=== PATIENT | female | born 1985 ===

== ENCOUNTER 2017-06-25 17:42 | Emergency (ER) | payer BC ==
[2017-06-25 17:51] VITALS: BP 116/78; RESP 16; O2SAT 100
[2017-06-25] MEDS ORDERED: Sodium Chloride 0.9% 1,000 ML IV STA (20:16)
[2017-06-25 20:42] LABS: BASO % 0.4 % (0.0-2.0); EOS % 0.1 % (0.0-4.0); HEMOGLOBIN 12.5 g/dL (12.0-16.0); LYMPH # 0.6 K/uL (1.0-4.3); LYMPH % 7.5 % (20.0-40.0); MEAN CORPUSCULAR HEMOGLOBIN 29.6 pg (27.0-31.0); MEAN PLATELET VOLUME 9.5 fl (7.2-11.7); MONO # 0.6 K/uL (0.0-0.8); MONO % 7.4 % (0.0-10.0); NEUT # 6.4 K/uL (1.8-7.0); NEUT % 84.6 % (50.0-75.0); PLATELET COUNT 196 K/uL (130-400); RBC 4.24 Mil/uL (3.80-5.20); RED CELL DISTRIBUTION WIDTH 12.9 % (11.5-14.5); WHITE BLOOD COUNT 7.5 K/uL (4.8-10.8)
[2017-06-25 20:49] LABS: ALB/GLOB RATIO 1.3 (1.0-2.1); ALBUMIN 4.4 g/dL (3.5-5.0); ALT/SGPT 60 U/L (9-52); AST/SGOT 37 U/L (14-36); BLOOD UREA NITROGEN 10 mg/dl (7-17); CALCIUM 8.9 mg/dL (8.4-10.2); GFR AFRICAN-AMERICAN > 60; GFR NON-AFRICAN AMERICAN > 60
[2017-06-25 20:59] LABS: SQUAMOUS EPITHIAL 11 /hpf (0-5); URINE BACTERIA MANY (<OCC); URINE BILIRUBIN NEGATIVE (NEGATIVE); URINE BLOOD LARGE (NEGATIVE); URINE CLARITY CLOUDY (Clear); URINE COLOR YELLOW (YELLOW); URINE GLUCOSE (UA) NEG (Normal); URINE LEUKOCYTE ESTERASE LARGE Leu/uL (Negative); URINE NITRATE POSITIVE (NEGATIVE); URINE PROTEIN 30 mg/dL (NEGATIVE)
--- NOTE | 2017-06-25 21:02 | ED PDOC ---
HPI: Headache Time Seen by Provider: 06/25/17 19:00 Chief Complaint (Nursing): Flu-like Symptoms Chief Complaint (Provider): headache History Per: Patient Onset/Duration Of Symptoms: Days (x1) Current Symptoms Are (Timing): Still Present Additional Complaint(s): 32 year old female who presents to the emergency department with a complaint of fever associated with headache ongoing for 1 day. Denied any nausea, vomiting, diarrhea, abdominal pain, difficulty urinating or bloody urine. also complaints of whole body aches and pain. PMD: none provided Past Medical History Reviewed: Historical Data, Nursing Documentation, Vital Signs Vital Signs: Last Vital Signs Temp 102.7 F H 06/25/17 17:49 Pulse 128 H 06/25/17 17:49 Resp 16 06/25/17 17:49 BP 116/78 06/25/17 17:49 Pulse Ox 100 06/25/17 17:49 - Medical History PMH: No Chronic Diseases - Surgical History Surgical History: No Surg Hx - Family History Family History: States: Unknown Family Hx - Social History Current smoker - smoking cessation education provided: No Alcohol: None Drugs: Denies - Home Medications Home Medications: Ambulatory Orders Medication Instructions Recorded Nitrofurantoin Macrocrystals 100 mg PO BID #14 cap 06/25/17 [Macrobid] Oseltamivir [Tamiflu] 75 mg PO BID #10 cap 06/25/17 - Allergies Allergies/Adverse Reactions: Allergies Allergy/AdvReac Type Severity Reaction Status Date / Time No Known Allergies Allergy Verified 06/25/17 17:49 Review of Systems ROS Statement: Except As Marked, All Systems Reviewed And Found Negative Constitutional: Positive for: Fever Gastrointestinal: Negative for: Nausea, Vomiting, Abdominal Pain, Diarrhea Genitourinary Female: Negative for: Dysuria, Hematuria Neurological: Positive for: Headache Physical Exam - Reviewed Nursing Documentation Reviewed: Yes Vital Signs Reviewed: Yes - Physical Exam Appears: Positive for: Non-toxic, No Acute Distress Head Exam: Positive for: ATRAUMATIC, NORMAL INSPECTION, NORMOCEPHALIC Skin: Positive for: Normal Color Eye Exam: Positive for: Normal appearance, EOMI, PERRL. Negative for: Nystagmus Neck: Positive for: Normal, Painless ROM Cardiovascular/Chest: Positive for: Regular Rate, Rhythm, Chest Non Tender Respiratory: Positive for: Normal Breath Sounds. Negative for: Decreased Breath Sounds, Respiratory Distress Gastrointestinal/Abdominal: Positive for: Normal Exam, Soft. Negative for: Tenderness Extremity: Positive for: Normal ROM (lower). 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 Negative for: Motor/Sensory Deficits - Laboratory Results Result Diagrams: 06/25/17 20:26 06/25/17 20:26 - ECG O2 Sat by Pulse Oximetry: 100 (RA) Pulse Ox Interpretation: Normal Medical Decision Making Medical Decision Making: Initial Impression: Headache body aches rule out flu Initial Plan: * CMP * CBC * NS 1,000ml IV per 999mls/hr * Toradol 30mg IV * Urine C&S * Influenza A B * UA __ Time: 2025 --Rapid flu: negative for influenza. --UA: positive for UTI. ____ Time: 2219 --Upon provider reevaluation, patient is medically stable but persistent with symptoms. Patient will be discharged home with Rx for Macrobid 100mg and Tamiflu 75mg as a prophylactic measure given that symptoms are influenza like. Counseling was provided and all questions were answered regarding diagnosis and need for follow up with PMD. There is agreement to discharge plan. Return if symptoms persist or worsen. Clinical Impression: UTI; Flu-like illness Scribe Attestation: Documented by Audrey Flores, acting as a scribe for Genaro Corrales MD. Provider Scribe Attestation: All medical record entries made by the Scribe were at my direction and personally dictated by me. I have reviewed the chart and agree that the record accurately reflects my personal performance of the history, physical exam, medical decision making, and the department course for this patient. I have also personally directed, reviewed, and agree with the discharge instructions and disposition. Disposition - Clinical Impression Clinical Impression: UTI (urinary tract infection), Influenza-like illness - Patient ED Disposition Is Patient to be Admitted: No Counseled Patient/Family Regarding: Studies Performed, Diagnosis, Need For Followup - Disposition Referrals: [facility] [Outside] [facility] [Outside] Disposition: Routine/Home Disposition Time: 21:20 Condition: IMPROVED Additional Instructions: follow up with your primary doctor in 1-2 days return to the ED with any worsening or concerning symptoms. Prescriptions: Nitrofurantoin Macrocrystals [Macrobid] 100 mg PO BID #14 cap Oseltamivir [Tamiflu] 75 mg PO BID #10 cap Instructions: Urinary Tract Infection in Women (ED) Forms: [facility] (Malay) Print Language: ALBANIAN
[2017-06-25 21:32] LABS: LYMPHOCYTE 8 % (20-50); MONOCYTE 8 % (0-10); NEUTROPHIL 84 % (42-75); PLATELET ESTIMATE NORMAL (NORMAL); TOTAL CELLS COUNTED 100
[2017-06-25 22:23] VITALS: TEMP 100.1
[2017-06-25 23:06] VITALS: PULSE 99
== END 2017-06-25 23:06 | disposition home or self-care (01) ==
LOC: H.ER 17:42
DX: N39.0 Urinary tract infection, site not specified (principal); R51 Headache
CPT/HCPCS: 80053; 81003; 81025; 85025; 87086; 87181; 87804; 96374; 99283; J1885; J7040

== ENCOUNTER 2017-08-16 22:23 | Emergency (ER) | payer BC ==
[2017-08-16 22:39] VITALS: RESP 16
[2017-08-16] MEDS ORDERED: Sodium Chloride 0.9% 1,000 ML IV STA (23:07)
--- NOTE | 2017-08-16 23:10 | ED PDOC ---
HPI: General Adult Time Seen by Provider: 08/16/17 23:01 Chief Complaint (Nursing): Headache Chief Complaint (Provider): fever History Per: Patient History/Exam Limitations: no limitations Onset/Duration Of Symptoms: Days (2) Current Symptoms Are (Timing): Still Present Additional Complaint(s): 32 y/o female presents with fever x 2 days. Associated headache, chills, and right-sided abdominal pain. Denies neck stiffness, bodyaches, nausea/vomiting, cough, congestion, throat pain, chest pain, shortness of breath, changes in bowel movements, urinary symptoms, recent travel, sick contacts. Past Medical History Reviewed: Historical Data, Nursing Documentation, Vital Signs Vital Signs: Last Vital Signs Temp 98.1 F 08/17/17 05:17 Pulse 69 08/17/17 05:17 Resp 16 08/17/17 05:17 BP 119/69 08/17/17 05:17 Pulse Ox 100 08/17/17 05:17 - Medical History PMH: No Chronic Diseases - Surgical History Surgical History: Cholecystectomy - Family History Family History: States: Unknown Family Hx - Living Arrangements Living Arrangements: With Family - Home Medications Home Medications: Ambulatory Orders Medication Instructions Recorded Nitrofurantoin Macrocrystals 100 mg PO BID #14 cap 06/25/17 [Macrobid] Oseltamivir [Tamiflu] 75 mg PO BID #10 cap 06/25/17 Ciprofloxacin HCl [Cipro] 500 mg PO BID #14 tab 08/17/17 Ibuprofen [Motrin Tab] 1 tab PO Q6 PRN #20 tab 08/17/17 - Allergies Allergies/Adverse Reactions: Allergies Allergy/AdvReac Type Severity Reaction Status Date / Time No Known Allergies Allergy Verified 08/16/17 22:34 Review of Systems ROS Statement: Except As Marked, All Systems Reviewed And Found Negative Constitutional: Positive for: Fever, Chills Gastrointestinal: Positive for: Abdominal Pain Neurological: Positive for: Headache Physical Exam - Reviewed Nursing Documentation Reviewed: Yes Vital Signs Reviewed: Yes - Physical Exam Appears: Positive for: Well, No Acute Distress Head Exam: Positive for: ATRAUMATIC, NORMAL INSPECTION, NORMOCEPHALIC Skin: Positive for: Normal Color Eye Exam: Positive for: Normal appearance ENT: Positive for: Normal ENT Inspection Cardiovascular/Chest: Positive for: Regular Rate, Rhythm Respiratory: Positive for: Normal Breath Sounds Gastrointestinal/Abdominal: Positive for: Tenderness (right flank, rlq) Back: Positive for: Normal Inspection Extremity: Positive for: Normal ROM Neurologic/Psych: Positive for: Alert, Oriented - Laboratory Results Result Diagrams: 08/17/17 00:05 08/17/17 00:05 - ECG O2 Sat by Pulse Oximetry: 97 - Progress ED Course And Treament: labs, urine, IV fluids, PO ibuprofen EXAM: CT Abdomen and Pelvis Without Intravenous Contrast EXAM DATE/TIME: 08/17/2017 1:29 AM CLINICAL HISTORY: 32 years old, female; Pain; Abdominal pain; Flank; Right; Additional info: Right flank pain TECHNIQUE: Axial computed tomography images of the abdomen and pelvis without intravenous contrast. All CT scans at this facility use one or more dose reduction techniques, viz.: automated exposure control; ma/kV adjustment per patient size (including targeted exams where dose is matched to indication; i.e. head); or iterative reconstruction technique. Coronal and sagittal reformatted images were created and reviewed. COMPARISON: No relevant prior studies available. FINDINGS: LIMITATIONS: Mild streak/motion artifact. LUNG BASES: No significant abnormality seen. ABDOMEN: LIVER: No acute abnormality of the liver identified. GALLBLADDER AND BILE DUCTS: Cholecystectomy clips. PANCREAS: No CT evidence of acute pancreatitis. SPLEEN: No acute abnormality of the spleen identified. ADRENALS: No acute abnormality of the adrenal glands identified. KIDNEYS AND URETERS: Mild right hydroureter, without significant hydronephrosis. Mild right perinephric stranding. No obstructing stones seen. STOMACH AND BOWEL: No acute abnormality of the stomach, small bowel or colon identified. No evidence of bowel obstruction. APPENDIX: Appendix is seen, and is within normal limits in appearance. PELVIS: BLADDER: No acute abnormality of the bladder identified. REPRODUCTIVE: Surgical clip in the right adnexal region. Mild uterine enlargement, which could be secondary to fibroids. No evidence of large adnexal masses. ABDOMEN and PELVIS: INTRAPERITONEAL SPACE: No evidence of free intraperitoneal air or fluid. BONES/JOINTS: Bilateral pars defects at L5, associated with mild (grade 1 or less) anterior subluxation of L5 over S1. Lytic lesion with well-defined sclerotic margins in the left proximal femur, measuring 1.5 cm. This overall has nonaggressive features by CT. It is of uncertain clinical significance. If there is any history of pain at this location, consider nonemergent further evaluation with MRI or bone scan. SOFT TISSUES: Small umbilical hernia, containing only fat. VASCULATURE: No evidence of abdominal aortic aneurysm. No evidence of periaortic hemorrhage. LYMPH NODES: No evidence of diffuse lymphadenopathy. IMPRESSION: - Mild right hydroureter and perinephric stranding, with no causative obstructing stone identified. Findings could be due to a recently passed stone. A right sided urinary tract infection could also have this appearance. Recommend clinical correlation. - Otherwise, no evidence of significant acute process. - Incidental bony lesion. See above. - Pars defects at L5, associated with mild spondylolisthesis. - See above for remaining findings. IV rocephin dose given. Patient educated on findings, discharged with rx Cipro, Ibuprofen. Advised fluids. Follow up PMD 2-3 days. Return precautions given. Disposition - Clinical Impression Clinical Impression: Pyelonephritis - Patient ED Disposition Is Patient to be Admitted: No Counseled Patient/Family Regarding: Studies Performed, Diagnosis, Need For Followup, Rx Given - Disposition Referrals: [facility] [Outside] Disposition: Routine/Home Disposition Time: 05:32 Condition: IMPROVED Prescriptions: Ciprofloxacin HCl [Cipro] 500 mg PO BID #14 tab Ibuprofen [Motrin Tab] 1 tab PO Q6 PRN #20 tab PRN Reason: Pain, Moderate (4-7) Instructions: Kidney Infection Forms: [facility] (Macedonian) Print Language: ECUADOREAN
[2017-08-17 00:11] LABS: BASO % 0.3 % (0.0-2.0); EOS % 0.4 % (0.0-4.0); HEMOGLOBIN 12.2 g/dL (12.0-16.0); LYMPH # 1.3 K/uL (1.0-4.3); LYMPH % 14.5 % (20.0-40.0); MEAN CELL VOLUME 85.9 fl (81.0-99.0); MEAN CORPUSCULAR HEMOGLOBIN 30.4 pg (27.0-31.0); MEAN CORPUSCULAR HGB CONC 35.3 g/dL (33.0-37.0); MEAN PLATELET VOLUME 8.7 fl (7.2-11.7); MONO # 0.9 K/uL (0.0-0.8); MONO % 10.2 % (0.0-10.0); NEUT # 6.6 K/uL (1.8-7.0); NEUT % 74.6 % (50.0-75.0); NRBC % 0.2 % (0.0-0.0); RBC 4.02 Mil/uL (3.80-5.20); WHITE BLOOD COUNT 8.8 K/uL (4.8-10.8)
[2017-08-17 00:26] LABS: ALBUMIN 4.2 g/dL (3.5-5.0); AST/SGOT 44 U/L (14-36); BLOOD UREA NITROGEN 6 mg/dl (7-17); GFR AFRICAN-AMERICAN > 60; GFR NON-AFRICAN AMERICAN > 60
[2017-08-17 00:33] LABS: SQUAMOUS EPITHIAL 11 /hpf (0-5); URINE BACTERIA OCC (<OCC); URINE BILIRUBIN NEGATIVE (NEGATIVE); URINE BLOOD MODERATE (NEGATIVE); URINE CLARITY CLOUDY (Clear); URINE COLOR YELLOW (YELLOW); URINE GLUCOSE (UA) NEG (Normal); URINE LEUKOCYTE ESTERASE SMALL Leu/uL (Negative); URINE PROTEIN NEGATIVE (NEGATIVE)
[2017-08-17 00:45] LABS: ALT/SGPT 70 U/L (9-52)
[2017-08-17] MEDS ORDERED: cefTRIAXone (Rocephin) 1 gm Inj ONE (01:46)
[2017-08-17 05:17] VITALS: BP 119/69; PULSE 69; TEMP 98.1
--- NOTE | 2017-08-17 05:30 | CT ---
EXAM: CT Abdomen and Pelvis Without Intravenous Contrast EXAM DATE/TIME: 08/17/2017 1:29 AM CLINICAL HISTORY: 32 years old, female; Pain; Abdominal pain; Flank; Right; Additional info: Right flank pain TECHNIQUE: Axial computed tomography images of the abdomen and pelvis without intravenous contrast. All CT scans at this facility use one or more dose reduction techniques, viz.: automated exposure control; ma/kV adjustment per patient size (including targeted exams where dose is matched to indication; i.e. head); or iterative reconstruction technique. Coronal and sagittal reformatted images were created and reviewed. COMPARISON: No relevant prior studies available. FINDINGS: LIMITATIONS: Mild streak/motion artifact. LUNG BASES: No significant abnormality seen. ABDOMEN: LIVER: No acute abnormality of the liver identified. GALLBLADDER AND BILE DUCTS: Cholecystectomy clips. PANCREAS: No CT evidence of acute pancreatitis. SPLEEN: No acute abnormality of the spleen identified. ADRENALS: No acute abnormality of the adrenal glands identified. KIDNEYS AND URETERS: Mild right hydroureter, without significant hydronephrosis. Mild right perinephric stranding. No obstructing stones seen. STOMACH AND BOWEL: No acute abnormality of the stomach, small bowel or colon identified. No evidence of bowel obstruction. APPENDIX: Appendix is seen, and is within normal limits in appearance. PELVIS: BLADDER: No acute abnormality of the bladder identified. REPRODUCTIVE: Surgical clip in the right adnexal region. Mild uterine enlargement, which could be secondary to fibroids. No evidence of large adnexal masses. ABDOMEN and PELVIS: INTRAPERITONEAL SPACE: No evidence of free intraperitoneal air or fluid. BONES/JOINTS: Bilateral pars defects at L5, associated with mild (grade 1 or less) anterior subluxation of L5 over S1. Lytic lesion with well-defined sclerotic margins in the left proximal femur, measuring 1.5 cm. This overall has nonaggressive features by CT. It is of uncertain clinical significance. If there is any history of pain at this location, consider nonemergent further evaluation with MRI or bone scan. SOFT TISSUES: Small umbilical hernia, containing only fat. VASCULATURE: No evidence of abdominal aortic aneurysm. No evidence of periaortic hemorrhage. LYMPH NODES: No evidence of diffuse lymphadenopathy. IMPRESSION: - Mild right hydroureter and perinephric stranding, with no causative obstructing stone identified. Findings could be due to a recently passed stone. A right sided urinary tract infection could also have this appearance. Recommend clinical correlation. - Otherwise, no evidence of significant acute process. - Incidental bony lesion. See above. - Pars defects at L5, associated with mild spondylolisthesis. - See above for remaining findings.
[2017-08-17 05:33] VITALS: O2SAT 97
== END 2017-08-17 05:45 | disposition home or self-care (01) ==
LOC: H.ER 22:23
DX: N12 Tubulo-interstitial nephritis, not specified as acute or chronic (principal)
CPT/HCPCS: 74176; 80053; 81003; 81025; 85025; 87086; 87181; 96374; 99285; J0696; J7040

== ENCOUNTER 2018-04-13 08:48 | Emergency (ER) | payer BC ==
[2018-04-13 08:54] VITALS: TEMP 99.1
--- NOTE | 2018-04-13 09:28 | ED PDOC ---
HPI: General Adult Time Seen by Provider: 04/13/18 08:50 Chief Complaint (Nursing): Flu-like Symptoms Chief Complaint (Provider): Fever, Chest Pain, Headache, Knee Pain History Per: Patient History/Exam Limitations: no limitations Onset/Duration Of Symptoms: Days (x2) Current Symptoms Are (Timing): Still Present Additional Complaint(s): Lindsey Poe is a 32 year old female presenting for evaluation of chest pain, headache, fever, and bilateral knee pain x5 days. Patient reports taking Advil with temporary relief of her fever and states her last was at 0100 today. Patient denies a history of similar symptoms in the past. Patient otherwise denies any shortness of breath, dizziness, weakness, numbness, tingling, light headedness, palpitations, fevers, chills, body aches, cough, nausea, vomiting, diarrhea, dysuria, abdominal pain, calf pain/swelling, sick contacts, recent travel, or prolonged immobility. Headache is mild, not worst in her life. No neck pain. Past Medical History Reviewed: Historical Data, Nursing Documentation, Vital Signs Vital Signs: Last Vital Signs Temp 99.1 F 04/13/18 08:53 Pulse 101 H 04/13/18 08:53 Resp 18 04/13/18 08:53 BP 113/73 04/13/18 08:53 Pulse Ox 97 04/13/18 08:53 - Medical History PMH: No Chronic Diseases - Surgical History Surgical History: Cholecystectomy - Family History Family History: States: Unknown Family Hx - Living Arrangements Living Arrangements: With Family - Home Medications Home Medications: Ambulatory Orders Medication Instructions Recorded Nitrofurantoin Macrocrystals 100 mg PO BID #14 cap 06/25/17 [Macrobid] Oseltamivir [Tamiflu] 75 mg PO BID #10 cap 06/25/17 Ciprofloxacin HCl [Cipro] 500 mg PO BID #14 tab 08/17/17 Ibuprofen [Motrin Tab] 1 tab PO Q6 PRN #20 tab 08/17/17 Ibuprofen [Motrin] 600 mg PO TID 7 Days tab 04/13/18 - Allergies Allergies/Adverse Reactions: Allergies Allergy/AdvReac Type Severity Reaction Status Date / Time No Known Allergies Allergy Verified 08/16/17 22:34 Review of Systems ROS Statement: Except As Marked, All Systems Reviewed And Found Negative Constitutional: Positive for: Fever Cardiovascular: Positive for: Chest Pain Musculoskeletal: Positive for: Leg Pain (bilateral knee pain) Neurological: Positive for: Headache Physical Exam - Reviewed Nursing Documentation Reviewed: Yes Vital Signs Reviewed: Yes - Physical Exam Appears: Positive for: Non-toxic, No Acute Distress Head Exam: Positive for: ATRAUMATIC, NORMAL INSPECTION, NORMOCEPHALIC Skin: Positive for: Normal Color, Warm, Dry. Negative for: Rash Eye Exam: Positive for: EOMI, Normal appearance, PERRL ENT: Positive for: Normal ENT Inspection Neck: Positive for: Normal, Painless ROM, Supple Cardiovascular/Chest: Positive for: Regular Rate, Rhythm. Negative for: Murmur Respiratory: Positive for: Normal Breath Sounds. Negative for: Respiratory Distress Gastrointestinal/Abdominal: Positive for: Normal Exam, Soft. Negative for: Tenderness, Guarding, Rebound Back: Positive for: Normal Inspection. Negative for: L CVA Tenderness, R CVA Tenderness, Vertebral Tenderness Extremity: Positive for: Normal ROM. 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 Negative for: Motor/Sensory Deficits, Facial Droop - Laboratory Results Interpretation Of Abn Labs: no acute - ECG ECG: Positive for: Interpreted By Me, Viewed By Ma ECG Rhythm: Positive for: Normal QRS, Normal ST Segment, Sinus Rhythm O2 Sat by Pulse Oximetry: 97 (RA) Pulse Ox Interpretation: Normal - Radiology X-Ray: Interpreted by Me, Viewed By Ma X-Ray Interpretation: No Acute Disease - Progress ED Course And Treament: 1055: Stable. AAOx3. Pain free. Tolerated PO. Walking around. Likely viral infection. Will rx motrin. Medical Decision Making Medical Decision Makin Prior medical records reviewed. Patient seen multiple times in the past with complaints of headache. Plan: -EKG -Upreg -Udip -CXR -Toradol 15mg IM -Flu swab Scribe Attestation: Documented by Jorge Lindsay, acting as a scribe for Andre Pearson MD. Provider Scribe Attestation: All medical record entries made by the Scribe were at my direction and personally dictated by me. I have reviewed the chart and agree that the record accurately reflects my personal performance of the history, physical exam, medical decision making, and the department course for this patient. I have also personally directed, reviewed, and agree with the discharge instructions and disposition. Disposition - Clinical Impression Clinical Impression: Viral illness - Patient ED Disposition Is Patient to be Admitted: No Counseled Patient/Family Regarding: Studies Performed, Diagnosis, Need For Followup, Rx Given - Disposition Referrals: [facility] [Outside] - 04/16/18 Disposition: Routine/Home Disposition Time: 10:56 Condition: STABLE Additional Instructions: Return if not better in 3 days. Prescriptions: Ibuprofen [Motrin] 600 mg PO TID 7 Days tab Instructions: Muscle and Bone Pain (DC) Print Language: CAMEROONIAN
[2018-04-13 11:33] VITALS: BP 108/63; PULSE 91; RESP 17; O2SAT 98
--- NOTE | 2018-04-13 15:09 | RAD ---
Date of service: 04/13/2018 HISTORY: chest pain COMPARISON: No prior. TECHNIQUE: Chest PA and lateral FINDINGS: LUNGS: No active pulmonary disease. PLEURA: No significant pleural effusion identified. No pneumothorax apparent. CARDIOVASCULAR: No aortic atherosclerotic calcification present. Normal cardiac size. No pulmonary vascular congestion. OSSEOUS STRUCTURES: No significant abnormalities. VISUALIZED UPPER ABDOMEN: Surgical clips right upper quadrant abdomen suggesting prior cholecystectomy. OTHER FINDINGS: None. IMPRESSION: No acute pulmonary disease appreciated bilaterally.
--- NOTE | 2018-04-13 20:41 | CARD ---
APPROVED REPORT Date of service: 04/13/2018 EKG Measurement Heart [id number] <Conclusion> Normal sinus rhythm Normal ECG
== END 2018-04-13 11:35 | disposition home or self-care (01) ==
LOC: H.ER 08:48
DX: B34.9 Viral infection, unspecified (principal)
CPT/HCPCS: 71046; 81025; 87804; 93005; 96372; 99283; J1885